=== PATIENT | male | born 1950 | race Caucasian/White ===

== ENCOUNTER 2016-09-05 00:41 | Emergency (ER) | payer MEDICARE, OTHER ==
[~2016-09-05] VITALS: Ht 177.8 cm; Wt 87.5 kg
[2016-09-05] MEDS ORDERED: PRINIVIL10 MG (00:51)
[2016-09-05] MEDS ORDERED: TOPROL XL (00:51)
[2016-09-05] MEDS ORDERED: ASPIRIN81 M2 (00:51)
[2016-09-05] MEDS ORDERED: LIPITOR20 MG (00:51)
[2016-09-05] MEDS ORDERED: OMEPRAZOLE20 M2 (00:51)
[2016-09-05 01:27] LABS: URINE SOURCE CLEAN CATCH
[2016-09-05 01:29] LABS: BASOPHIL% 0.2 % (0-2.5); EOSINOPHIL% 0.2 % (0.0-7.0); HEMATOCRIT 43.6 % (38.0-50.0); HEMOGLOBIN 15.3 gm/dL (13.0-16.0); LYMPHOCYTE# 1.8 X10e3 (1.0-3.5); LYMPHOCYTE% 15.2 % (17.0-45.0); MEAN CELL VOLUME 79.7 FL (83-96); MEAN CORPUSCULAR HEMOGLOBIN 27.9 PG (28-34); MEAN PLATELET VOLUME 7.9 FL (6.5-11.5); MONOCYTE# 0.9 X10e3 (0-1.0); MONOCYTE% 7.5 % (3.0-12.0); NEUTROPHIL# 9.3 X10e3 (1.5-7.1); NEUTROPHIL% 76.9 % (40-75); PLATELET COUNT 168 X10e3 (140-420); RED BLOOD COUNT 5.48 X10e (3.90-5.60); URINE APPEARANCE HAZY; URINE BLOOD NEG (NEG); URINE COLOR YELLOW; URINE GLUCOSE NEG (NORM); URINE KETONE TRACE (NEG); URINE LEUKOCYTE ESTERASE NEG (NEG); URINE NITRATE NEG (NEG); URINE PROTEIN 1+ (NEG); WHITE BLOOD COUNT 12.1 X10e3 (4.0-10.5)
[2016-09-05 01:31] LABS: DIFF IND NO; MICRO INDICATED? NO; URINE BILIRUBIN NEG (NEG)
[2016-09-05 01:45] LABS: ALBUMIN SERUM 4.8 g/dL (3.5-5.0); BILIRUBIN, DIRECT 0.2 mg/dL (0.0-0.2); BILIRUBIN,INDIRECT 1.3 mg/dL (0.0-0.9); BILIRUBIN,TOTAL 1.5 mg/dL (0.2-2.0); BUN/CREATININE RATIO 19.09; CALCIUM SERUM 9.4 mg/dL (8.4-10.2); CREATININE SERUM 1.1 mg/dL (0.6-1.4); GLOM FILT RATE Estimated 69.1 mL/min (>60); MAGNESIUM 2.1 mg/dL (1.6-3.0); POTASSIUM 3.7 mmol/L (3.5-5.1); PROTEIN TOTAL SERUM 7.7 g/dL (6.0-8.3)
== END 2016-09-05 02:24 | disposition home or self-care (01) ==
LOC: SED 00:41
PROVIDERS: Emergency Medicine
DX: E86.0 Dehydration (principal); K21.9 Gastro-esophageal reflux disease without esophagitis; I10 Essential (primary) hypertension; Z79.82 Long term (current) use of aspirin
CPT/HCPCS: 36415; 80048; 80076; 81003; 83735; 85025; 96361; 96374; 99283; J1885